=== PATIENT | female | born 1975 | race Caucasian/White ===

== ENCOUNTER 2016-11-21 16:28 | Emergency (ER) | payer MEDICAID ==
[~2016-11-21] VITALS: Ht 162.6 cm; Wt 80.0 kg
[2016-11-21 16:31] VITALS: Ht 162.6 cm; Wt 80.0 kg
[2016-11-21] MEDS ORDERED: SODIUM CHLORIDE 0.9% 1L BAG IV* STA (17:56)
[2016-11-21] MEDS ORDERED: morphine 4 MG/ML VIAL IV STA (17:56)
[2016-11-21] MEDS ORDERED: ONDANSETRON 4 MG INJ IV STA (17:56)
[2016-11-21 18:24] LABS: BASOPHILS % 0.2 % (0.0-2.0); EOSINOPHILS % 0.1 % (0.0-7.0); HEMATOCRIT 40.2 % (37.0-47.0); HEMOGLOBIN 13.4 g/dl (12.0-16.0); LYMPHOCYTES # 1.1 10^3/ul (0.8-2.9); LYMPHOCYTES % 7.1 % (15.0-51.0); MEAN CORPUSCULAR HEMOGLOBIN 30.3 pg (29.0-33.0); MEAN CORPUSCULAR HGB CONC 33.3 g/dl (32.0-37.0); MONOCYTES % 6.3 % (0.0-11.0); NEUTROPHIL # 13.3 10^3/ul (1.6-7.5); NEUTROPHILS % 85.8 % (39.0-77.0); PLATELET COUNT 268 10^3/UL (140-415); RED BLOOD COUNT 4.42 10^6/ul (4.20-5.40); RED CELL DISTRIBUTION WIDTH 13.2 % (11.5-14.5); WHITE BLOOD COUNT 15.5 10^3/ul (4.8-10.8)
[2016-11-21 18:40] LABS: INR 0.91; PROTIME 12.3 Sec (12.2-14.2)
[2016-11-21 18:41] LABS: PARTIAL THROMBOPLASTIN TIME 24.7 Sec (25.0-35.0)
[2016-11-21 18:46] LABS: ALANINE AMINOTRANSFERASE 35 IU/L (13-69); ALBUMIN 4.6 g/dl (3.3-4.9); ALBUMIN/GLOBULIN RATIO 1.31; ALKALINE PHOSPHATASE 83 IU/L (42-121); ANION GAP 18 (8-16); ASPARTATE AMINO TRANSFERASE 27 IU/L (15-46); BILIRUBIN,INDIRECT 0.2 mg/dl (0-1.1); BILIRUBIN,TOTAL 0.2 mg/dl (0.2-1.3); BLOOD UREA NITROGEN 18 mg/dl (7-20); CALCIUM 9.5 mg/dl (8.4-10.2); CARBON DIOXIDE 27 mmol/L (21-31); CHLORIDE 102 mmol/L (97-110); CREATININE 0.83 mg/dl (0.44-1.00); GLUCOSE 98 mg/dl (70-220); POTASSIUM 3.6 mmol/L (3.5-5.1); SODIUM 143 mmol/L (135-144); TOTAL PROTEIN 8.1 g/dl (6.1-8.1)
[2016-11-21 19:09] LABS: TROPONIN-I < 0.012 ng/ml (0.00-0.12)
[2016-11-21 19:12] LABS: ADD UMIC YES; UR ASCORBIC ACID NEGATIVE (NEGATIVE); UR BACTERIA FEW /HPF (NONE SEEN); UR BILIRUBIN (Dip) NEGATIVE (NEGATIVE); UR BLOOD (Dip) 1+ mg/dL (NEGATIVE); UR CLARITY SLIGHTLY CLOUDY (CLEAR); UR COLOR YELLOW (YELLOW); UR GLUCOSE (Dip) 1+ mg/dL (NEGATIVE); UR KETONES (Dip) NEGATIVE (NEGATIVE); UR LEUKOCYTE ESTERASE (Dip) 2+ Leu/ul (NEGATIVE); UR NITRITE (Dip) POSITIVE (NEGATIVE); UR RBC 4 /HPF (0-5); UR SPECIFIC GRAVITY (Dip) 1.023 (1.003-1.030); UR SQUAMOUS EPITHELIAL CELL FEW /HPF (FEW); UR TOTAL PROTEIN (Dip) 1+ mg/dl (NEGATIVE); UR UROBILINOGEN (Dip) NEGATIVE (NEGATIVE)
--- NOTE | 2016-11-21 19:25 | RADRPT ---
PROCEDURE: XR Chest. CLINICAL INDICATION: chest pain TECHNIQUE: Single frontal view of the chest was obtained COMPARISON: None FINDINGS: The heart and mediastinum are within normal limits. The lungs are clear. There is no pleural effusion or pneumothorax. RPTAT: AA IMPRESSION: No acute disease. .Ignacio Ahuamda MD, Date Time Electronically viewed and signed by .Ignacio Ahumada MD, on 11/21/2016 19:24 .S/
--- NOTE | 2016-11-21 19:29 | RADRPT ---
PROCEDURE: CT Abdomen and Pelvis without contrast. CLINICAL INDICATION: Left lower quadrant abdominal pain with headache, fever and vomiting for 1 da y. TECHNIQUE: Multiple contiguous axial CT images of the abdomen and pelvis were obtained without the administration of intravenous contrast. Coronal and sagittal reconstructions were also performed. CTDIvol (mGy): 15.48; Total Exam DLP (mGy-cm): 873.52. One or more of the following dose reduction techniques were utilized: - Automated exposure control. - Adjustment of the mA and/or kV according to patient size. - Use of iterative reconstruction technique. COMPARISON: None. FINDINGS: Limited imaging of the lower thorax is unremarkable. The liver and spleen are homogeneous in density. The gallbladder, pancreas and adrenal glands are u nremarkable. The kidneys are symmetric in size. There are no nephroureteral stones. There is no hydronephrosis o r abnormal perinephric inflammation. The abdominal aorta is normal in caliber. There is no periaortic / retroperitoneal lymphadenopathy. The stomach and small and large intestines are unremarkable. The appendix is normal. There are no focal inflammatory changes of the mesentery. There is no mesenteric lymphadenopathy. There is no a scites. The bladder, uterus and adnexa are unremarkable. There is no free pelvic fluid. There is no pelvic sidewall or inguinal lymphadenopathy. Mild degenerative changes of the spine are observed. Body wall soft tissues are unremarkable. IMPRESSION: No evidence of abdominopelvic mass, lymphadenopathy or acute inflammatory pathology. RPTAT: HLST .Yamel Rios MD, Date Time Electronically viewed and signed by .Yamel Rios MD, MD on 11/21/2016 19:28 .T/
[2016-11-21] MEDS ORDERED: CEFTRIAXONE 1 GM/50 ML (PMX) 50 ML IVPB ONE (19:30)
--- NOTE | 2016-11-21 19:36 | ERD ---
ER Documentation Chief Complaint Date/Time DATE: 11/21/16 TIME: 19:32 Chief Complaint LT SIDE ABD PAIN, HEADACHE , FEVER VOMITING X 1 DAY HPI This is a 41-year-old female who presents to the emergency room for evaluation of abdominal cramping, fever, vomiting for one days duration. The patient states that her pain is localized in the left portion of her abdomen and she describes it as a sharp pain sometimes worse with urination. The patient denies any chest pain or blurred vision and came to the emergency room for evaluation. The patient states that she does have some pain that radiates to the left groin. ROS All systems reviewed and are negative except as per history of present illness. Allergies Allergies: Coded Allergies: black pepper (Unverified Allergy, Intermediate, LIPS SWELL, 03/20/15) PMhx/Soc Medical and Surgical Hx: pt denies Medical Hx, pt denies Surgical Hx Hx Alcohol Use: No Hx Substance Use: No Hx Tobacco Use: No Smoking Status: Never smoker Physical Exam Vitals Vital Signs Date Time Temp Pulse Resp B/P Pulse Ox O2 Delivery O2 Flow Rate FiO2 11/21/16 16:31 100.8 89 18 125/83 100 Physical Exam INITIAL VITAL SIGNS: Reviewed by me GENERAL: The patient is well developed and appropriate for usual state of health in no apparent distress HEENT: Pupils equal, round, and reactive to light. EOMI. There is no scleral icterus. NECK: C-spine is soft and supple, there is no meningismus. There is no cervical lymphadenopathy. LUNGS: Clear to auscultation bilaterally. There are no rales, wheezes or rhonchi. HEART: Tachycardic, no murmurs, clicks, rubs or gallops. ABDOMEN: Left-sided CVAT, otherwise soft, non-tender, non-distended. There are bowel sounds in all four quadrants. No rebound or guarding. EXTREMITIES: There is no peripheral cyanosis or edema. No focal swelling or erythema. NEUROLOGICAL: The patient moves all four extremities with 5/5 strength. Cranial nerves II - XII are intact. Normal gait. Alert and oriented SKIN: There is no apparent rash or petechiae. HEME/LYMPHATIC: There is no evidence of excessive bruising or lymphedema. PSYCHIATRIC: The patient does not appear anxious or depressed. Result Diagram: 7/27/17 1810 7/27/17 1810 Results 24 hrs Laboratory Tests Test 11/21/16 18:10 11/21/16 18:48 White Blood Count 15.510^3/ul Red Blood Count 4.4210^6/ul Hemoglobin 13.4g/dl Hematocrit 40.2% Mean Corpuscular Volume 91.0fl Mean Corpuscular Hemoglobin 30.3pg Mean Corpuscular Hemoglobin Concent 33.3g/dl Red Cell Distribution Width 13.2% Platelet Count 29957^3/UL Mean Platelet Volume 10.0fl Neutrophils % 85.8% Lymphocytes % 7.1% Monocytes % 6.3% Eosinophils % 0.1% Basophils % 0.2% Nucleated Red Blood Cells % 0.0/100WBC Neutrophils # 13.310^3/ul Lymphocytes # 1.110^3/ul Monocytes # 1.010^3/ul Eosinophils # 0.010^3/ul Basophils # 0.010^3/ul Nucleated Red Blood Cells # 0.010^3/ul Prothrombin Time 12.3Sec Prothrombin Time Ratio 1.0 INR International Normalized Ratio 0.91 Activated Partial Thromboplast Time 24.7Sec Sodium Level 143mmol/L Potassium Level 3.6mmol/L Chloride Level 102mmol/L Carbon Dioxide Level 27mmol/L Anion Gap 18 Blood Urea Nitrogen 18mg/dl Creatinine 0.83mg/dl Glucose Level 98mg/dl Lactic Acid Level 1.3mmol/L Calcium Level 9.5mg/dl Total Bilirubin 0.2mg/dl Direct Bilirubin 0.00mg/dl Indirect Bilirubin 0.2mg/dl Aspartate Amino Transf (AST/SGOT) 27IU/L Alanine Aminotransferase (ALT/SGPT) 35IU/L Alkaline Phosphatase 83IU/L Troponin I < 0.012ng/ml Total Protein 8.1g/dl Albumin 4.6g/dl Globulin 3.50g/dl Albumin/Globulin Ratio 1.31 Serum HCG, Qualitative NEGATIVE Urine Color YELLOW Urine Clarity SLIGHTLY CLOUDY Urine pH 5.0 Urine Specific [place] 1.023 Urine Ketones NEGATIVEmg/dL Urine Nitrite POSITIVEmg/dL Urine Bilirubin NEGATIVEmg/dL Urine Urobilinogen NEGATIVEmg/dL Urine Leukocyte Esterase 2+Sahil/ul Urine Microscopic RBC 4/HPF Urine Microscopic WBC 47/HPF Urine Squamous Epithelial Cells FEW/HPF Urine Bacteria FEW/HPF Urine Hemoglobin 1+mg/dL Urine Glucose 1+mg/dL Urine Total Protein 1+mg/dl Urine Test NEGATIVE Current Medications Medications (Trade) Dose Ordered Sig/Dwain Route PRN Reason Start Time Stop Time Status Last Admin Dose Admin Sodium Chloride (NS) 2,480 ml BOLUS OVER 2 HOURS STAT IV* 11/21/16 17:56 11/21/16 17:59 DC 11/21/16 18:15 Morphine Sulfate (morphine) 4 mg ONCE STAT IV 11/21/16 17:56 11/21/16 17:59 DC 11/21/16 18:15 Ondansetron HCl 4 mg 4 mg ONCE STAT IV 11/21/16 17:56 11/21/16 17:59 DC 11/21/16 18:15 Ceftriaxone Sodium (Rocephin) 50 ml @ 100 mls/hr ONCE ONCE IVPB 11/21/16 19:30 11/21/16 19:59 Procedures/MDM Chest X-ray 1V Interpreted by me: Soft Tissue: No acute abnormalities Bones: No acute abnormalities Mediastinum/Cardiac Silhouette/Lungs: [No acute abnormalities] CT abdomen pelvis without: No evidence of abdominopelvic mass, lymphadenopathy or acute inflammatory pathology. This is a 41-year-old female who presents to the emergency room for evaluation of abdominal pain, fever, vomiting. When I evaluated this patient the patient did appear to be in mild distress. She did have left-sided CVAT. I did obtain lab work including a CAT scan on this patient. This patient has a slight leukocytosis and the patient does have a nitrite positive urinary tract infection. The patient was given morphine for pain, and was given 1 g Rocephin for acute cystitis. When I reevaluated this patient she was nontoxic-appearing and was hemodynamically stable. She states her pain is improved drastically. She is not vomiting. The patient is likely suffering from pyelonephritis and will be discharged home at this time with a prescription for ciprofloxacin for the course of the next 2 weeks, Zofran for nausea, and Motrin for pain Departure Diagnosis: Primary Impression: Acute pyelonephritis Additional Impressions: Acute cystitis Nausea & vomiting Condition: Stable BRANDY NICHOLSON DO Nov 21, 2016 19:36
[2016-11-21] MEDS ORDERED: CIPR500T4 PO (19:50)
[2016-11-21] MEDS ORDERED: IBUP800T25 PO (19:50)
[2016-11-21] MEDS ORDERED: ONDA4TAB8 PO (19:50)
[2016-11-21] MEDS ORDERED: ACETAMINOPHEN 500 MG TAB PO STA (20:35)
[2016-11-21] MEDS ORDERED: IBUPROFEN 800 MG TAB PO ONE (21:30)
[2016-11-21 21:59] VITALS: TEMP 101.3
== END 2016-11-21 22:04 | disposition home or self-care (01) ==
LOC: E/R 16:28
DX: N10 Acute pyelonephritis (principal); N30.00 Acute cystitis without hematuria; R11.2 Nausea with vomiting, unspecified; R07.9 Chest pain, unspecified
CPT/HCPCS: 36415; 71010; 74176; 80053; 81001; 83605; 84484; 84703; 85025; 85610; 85730; 87040; 87086; 93005; 96374; 96375; J0696; J2270; J2405; J7030; Z7502; Z7610

== ENCOUNTER 2018-10-27 08:07 | Emergency (ER) | payer MEDICAID ==
[~2018-10-27] VITALS: Ht 165.1 cm; Wt 85.0 kg
[~2018-10-27 08:07] MED LIST: CIPR500T4 PO; HYDR30CR75 PR; IBUP800T48 PO; ONDA4TAB8 PO; POLY17PO6 PO
[2018-10-27 08:11] VITALS: BP 130/79; PULSE 77; RESP 18; Ht 165.1 cm; Wt 85.0 kg
[2018-10-27] MEDS ORDERED: KETOROLAC 60 MG INJ IM STA (09:19)
--- NOTE | 2018-10-27 09:31 | ERD ---
ER Documentation Chief Complaint Chief Complaint Pt with L arm pain fell yesterday down 6 steps , ko, moves all finger HPI Patient is a 42 years old female with no known PMHx presenting to the clinic for severe left forearm and arm pain since yesterday. Patient admits to falling while trying to climb the stairs to her house and fell 6 steps and landed on her face and admits to 5 mins of LOC. Patient states that she went home and took Tylenol. Patient admits to bruises under left eye without visual impairment or ocular pain and left proximal forearm and left arm pain. Patient states that her left arm pain worsened to the point that slight movement makes it unalterable. Patient admits to 5/10 fever and denies visual impairment, ocular pain, nausea, emesis. ROS All systems reviewed and are negative except as per history of present illness. Medications Home Meds Active Scripts Ibuprofen* (Motrin*) 800 Mg Tab, 800 MG PO Q6, #30 TAB Prov:MARLENE FISHER PA-C 10/27/18 Hydrocortisone Acetate* (Anusol-HC*) 30 Gm Cream.gm., 1 APPLIC NC BID, #1 TUB Prov:KAMRAN VILLAREAL PA-C 02/26/17 Polyethylene Glycol* (Miralax*) 17 Gm Powd.pack, 17 GM PO DAILY, #7 Prov:KAMRAN VILLAREAL PA-C 02/26/17 Ondansetron Hcl* (Zofran*) 4 Mg Tablet, 4 MG PO Q8H PRN for NAUSEA AND/OR VOMITING, #10 TAB Prov:BRANDY NICHOLSON DO 11/21/16 Ciprofloxacin Hcl* (Ciprofloxacin Hcl*) 500 Mg Tablet, 500 MG PO BID for 14 Days, TAB Prov:BRANDY NICHOLSON DO 11/21/16 Ibuprofen* (Motrin*) 800 Mg Tab, 800 MG PO Q6H PRN for PAIN AND OR ELEVATED TEMP, #30 TAB Prov:BRANDY NICHOLSON DO 11/21/16 Discontinued Scripts Ibuprofen* (Motrin*) 800 Mg Tab, 800 MG PO Q6, #30 TAB Prov:MARLENE FISHER PA-C 10/27/18 Allergies Allergies: Coded Allergies: No Known Allergy (Unverified , 11/21/16) PMhx/Soc Medical and Surgical Hx: pt denies Medical Hx History of Surgery: Yes (CSX2) Anesthesia Reaction: No Hx Neurological Disorder: No Hx Respiratory Disorders: No Hx Cardiac Disorders: No Hx Psychiatric Problems: No Hx Miscellaneous Medical Probl: No Hx Alcohol Use: No Hx Substance Use: No Hx Tobacco Use: No Smoking Status: Never smoker FmHx Family History: No diabetes, No coronary disease, No other Physical Exam Vitals Physical Exam Const: No acute distress. Patient has left arm in a makeshift arm sling from fabric. Head: Atraumatic Eyes: Normal Conjunctiva. PERRLA. No nystagmus. Ecchymoses with swelling noted on left inferior eye region with left eye spared. EOMI. ENT: Normal External Ears, Nose and Mouth. Neck: Full range of motion. No meningismus. Resp: Clear to auscultation bilaterally Cardio: Regular rate and rhythm, no murmurs Neur: Awake and alert Psych: Normal Mood and Affect Left Forearm Exam: Severe tenderness to palpation of proximal ventral and dorsal region with swelling. Compartment soft. Mild ecchymoses noted without skin perforation. Left Arm Exam: Severe tenderness to palpation of entire arm with swelling. Compartment soft. Mild ecchymoses noted without skin perforation. Results 24 hrs Laboratory Tests Test 10/27/18 09:32 POC Beta HCG, Qualitative NEGATIVE Current Medications Medications Dose Sig/Dwain Start Time Status Last (Trade) Ordered Route PRN Stop Time Admin Dose Reason Admin Ketorolac 60 mg ONCE STAT 10/27/18 DC 10/27/18 Tromethamine IM 09:19 10/27/18 09:38 (Toradol) 09:23 Procedures/MDM Patient was seen and evaluated for left arm pain status post falling injury. Head CT is unremarkable without any signs of ICH. Left forearm X-Ray revealed Interval reduction of previously noted lateral dislocation of the proximal ulna and radius. Left Humerus X-Ray revealed Lateral dislocation of the proximal ulna and radius. Dr. Jacinto was informed about dislocation and was recommended to do left elbow X-Ray. Left Elbow X-Ray revealed Slight cortical irregularity along the lateral aspect of radial head on the AP view. Although there is no joint effusion, small fracture fragment cannot be entirely ruled out. Clinical correlation with point tenderness is recommended. Elbow image showed radial and ulnar bone in placed. Consultation with Dr. Churchill recommends posterior elbow splint followed by Ortho referral. Patient was given Toradol IM in ED. left arm sling provided ED. Patient is stable and ready for discharged. F/U with PCP. Patient will be discharged with ibuprofen. Continue using arm sling. Departure Diagnosis: Primary Impression: Dislocation of left ulnohumeral joint Encounter type: initial encounter Qualified Codes: S53.105A - Unspecified dislocation of left ulnohumeral joint, initial encounter Additional Impressions: Head trauma Encounter type: initial encounter Qualified Codes: S09.90XA - Unspecified injury of head, initial encounter Pain of left arm Condition: Stable Patient Instructions: Dislocation, Other Joint Referrals: [facility] Additional Instructions: Paciente aconseja volver a Departamento de urgencias inmediatamente para sntomas nuevos o que empeoran . Paciente aconseja posteriores con el PCP en 2-3 smith . Paciente verbaliza la comprehensin y est de acuerdo con el tratamiento y el curso de accin. Si el paciente no tiene ninguna de atencin primaria pueden seguir con [facility] [address] [place] [address] o [facility] + [address] [id number] MARLENE FISHER PA-C Oct 27, 2018 09:31
[2018-10-27] MEDS ORDERED: IBUP800T48 PO ×2 (13:19→13:38)
== END 2018-10-27 13:56 | disposition home or self-care (01) ==
LOC: FTE 08:07
DX: S53.105A Unspecified dislocation of left ulnohumeral joint, initial encounter (principal); S09.90XA Unspecified injury of head, initial encounter; S00.12XA Contusion of left eyelid and periocular area, initial encounter; W10.8XXA Fall (on) (from) other stairs and steps, initial encounter; Y92.9 Unspecified place or not applicable
CPT/HCPCS: 29125; 70450; 73060; 73080; 73090; 81025; 96372; J1885; Z7502; Z7610